=== PATIENT | female | born 1995 | race Caucasian/White ===

== ENCOUNTER → 2016-10-22 | Outpatient (CLI) | payer MEDICAID ==
--- NOTE | 2016-10-22 16:56 | RADIOLOGY REPORT (SQ) ---
EXAM DESCRIPTION: U/S OB TRANSVAGINAL W/O DOP COMPLETED DATE/TIME: 10/22/2016 4:33 pm REASON FOR STUDY: INCOMPLETE OR SPONTANEOUS WITH OTHER COMPLICATIONS O03.9 COMPLETE OR UNS P SPONTANEOUS WITHOUT COMPLICA COMPARISON: None. TECHNIQUE: Endovaginal static and realtime grayscale images acquired of the pelvis. Additional selec vicky spectral and color Doppler images recorded. All images stored on PACs. C LIMITATIONS: None. FINDINGS: Patient is post 09/23/2016 with persistent serum HCG level. UTERUS: 6.4 x 5 x 4 cm in size. No fibroids. There are findings worrisome for retained products of conception, with a heterogeneous endometrial st ripe with markedly increased color flow. Molar could not be excluded. This report was iliana led to Dinah Mckenzie NP 1640 hours 10/22/2016. CERVICAL LENGTH: 3.5 Cm Closed. RIGHT ADNEXA: Not visualized due to bowel gas LEFT ADNEXA: Not visualized due to bowel gas FREE FLUID: None. OTHER: No other significant finding. IMPRESSION: Heterogeneous endometrium with markedly increased color flow. In the setting of persist ent serum beta HCG post , findings are worrisome for retained products of conception or molar . TECHNICAL DOCUMENTATION: JOB ID: [id number] [employer]- All Rights Reserved
== END ==
LOC: RAD 15:51
PROVIDERS: ATTEND Nurse Practitioner
DX: O03.9 Complete or unspecified spontaneous abortion without complication (principal)
CPT/HCPCS: 76817

== ENCOUNTER 2016-11-09 07:46 | Day surgery (SDC) | payer MEDICAID ==
[2016-11-05 11:29] LABS: HEMATOCRIT 39.3 % (36.0-47.0); HEMOGLOBIN 13.2 g/dL (12.0-15.5); HGB HCT DIFFERENCE 0.3; MEAN CORPUSCULAR HEMOGLOBIN 30.6 pg (27.0-33.4); MEAN CORPUSCULAR HGB CONC 33.5 g/dL (32.0-36.0); MEAN CORPUSCULAR VOLUME 92 fl (80-97); RED BLOOD COUNT 4.29 10^6/uL (3.72-5.28); WHITE BLOOD COUNT 5.6 10^3/uL (4.0-10.5)
[2016-11-05 12:14] LABS: APPEARANCE,URINE SLIGHTLY HAZY; GLUCOSE, URINE NEGATIVE (NEGATIVE)
[2016-11-05 12:15] LABS: BACTERIA,URINE 3+ /HPF; BILIRUBIN,URINE NEGATIVE (NEGATIVE); KETONES,URINE NEGATIVE (NEGATIVE); LEUKOCYTE ESTERASE,URINE LARGE (NEGATIVE); NITRITE,URINE NEGATIVE (NEGATIVE); PROTEIN,URINE NEGATIVE (NEGATIVE); RBC,URINE 0-1 /HPF; URINE SPECIFIC GRAVITY 1.019; UROBILINOGEN,URINE NEGATIVE mg/dL (<2.0)
[~2016-11-09 07:46] MED LIST: LACTATED RINGERS 1000 ML IV PRN; LIDOCAINE 0.5% INJ-PF (5 MG/ML) 50 ML SDV SUBCUT PRN
[2016-11-09] MEDS ORDERED: PROPOFOL INJ 200 MG/20 ML VIAL IV ONE ×2 (09:39→09:42)
[2016-11-09] MEDS ORDERED: FENTANYL CITRATE INJ/PF 100 MCG/2 ML AMPUL ONE ×2 (09:39→09:41)
[2016-11-09] MEDS ORDERED: MIDAZOLAM 2 MG/2 ML INJ ONE ×2 (09:39→09:42)
[2016-11-09] MEDS ORDERED: LIDOCAINE 2% INJ-PF (20 MG/ML) 10 ML AMPUL ONE ×2 (09:41→13:54)
[2016-11-09] MEDS ORDERED: ONDANSETRON HCL INJ/PF 4 MG/2 ML SDV ONE (09:42)
[2016-11-09] MEDS ORDERED: IBUPROFEN INJ 800 MG/8 ML VIAL IV ONE (09:42)
[2016-11-09] MEDS ORDERED: DEXAMETHASONE SOD PHOSPHATE INJ 4 MG/1 ML VIAL ONE (09:42)
[2016-11-09] MEDS ORDERED: PROMETHAZINE HCL INJ 25 MG/1 ML VIAL IV PRN ×2 (10:12)
[2016-11-09] MEDS ORDERED: MEPERIDINE HCL/PF INJ 25 MG/1 ML DISP.SYRIN IV PRN (10:12)
[2016-11-09] MEDS ORDERED: OXYCODONE-ACETAMINOPHEN 5-325 MG TABLET PO PRN ×3 (10:12→11:06)
[2016-11-09] MEDS ORDERED: FENTANYL CITRATE INJ/PF 100 MCG/2 ML AMPUL IV PRN ×3 (10:12)
[2016-11-09] MEDS ORDERED: ONDANSETRON HCL INJ/PF 4 MG/2 ML SDV IV PRN (10:12)
[2016-11-09] MEDS ORDERED: DIPHENHYDRAMINE HCL 50 MG/ML VIAL IV PRN (10:12)
--- NOTE | 2016-11-09 10:24 | Operative Report ---
Operative Report DATE OF SURGERY: 11/09/16 PREOPERATIVE DIAGNOSIS: Retained products of conception POSTOPERATIVE DIAGNOSIS: Same OPERATION: Suction D&C SURGEON: JERROD CHAUDHARY ANESTHESIA: GA TISSUE REMOVED OR ALTERED: Uterine contents COMPLICATIONS: None ESTIMATED BLOOD LOSS: 50 cc INTRAOPERATIVE FINDINGS: Retained uterine contents PROCEDURE: Patient was taken back to the OR and placed in supine position. General anesthesia was induced. She was placed in the dorsolithotomy position using Bran stirrups. Her perineum and vagina were prepared and draped in sterile fashion. A weighted speculum was placed in the vagina and the anterior lip of the cervix was grasped with a tenaculum. The uterus was sounded to 7-8 cm before and after the case. The cervix was gently dilated and a size 8 curved suction curette was used to evacuate uterine contents. There was a small return of retained tissue. This was sent for specimen. At the end of the case the small cervical laceration from the tenaculum was closed with a 3-0 chromic suture. All instruments were removed and she was placed back in supine position. She was brought out of anesthesia and taken recovery room in stable condition.
[2016-11-09] MEDS ORDERED: KETOROLAC TROMETHAMINE INJ/PF 30 MG/1 ML SDV IV PRN (11:01)
[2016-11-09] MEDS ORDERED: IBUPROFEN 800 MG TABLET PO PRN (11:05)
[2016-11-09 12:20] VITALS: BP 114/75
[2016-11-09] MEDS ORDERED: SUCCINYLCHOLINE CHLORIDE INJ 200 MG/10 ML VIAL ONE (13:54)
[2016-11-09] MEDS ORDERED: METOCLOPRAMIDE HCL INJ/PF 10 MG/2 ML SDV ONE (13:54)
== END 2016-11-09 12:15 | disposition home or self-care (01) ==
LOC: OROUT 07:46
PROVIDERS: ATTEND Obstetrics & Gynecology
PROC: 10D17ZZ Extraction of Products of Conception, Retained, Via Natural or Artificial Opening (ICD-10-PCS; principal; 2016-11-09 10:00)
DX: O73.1 Retained portions of placenta and membranes, without hemorrhage (principal); R87.810 Cervical high risk human papillomavirus (HPV) DNA test positive
CPT/HCPCS: 36415; 85027; 81025; 81001; 88305 ×2; 59812; J2250; J1100; J3010; J2765; J0330; J2405; J2704; J3490; J1741; 1965

== ENCOUNTER 2017-02-18 07:52 | Day surgery (SDC) | payer MEDICAID ==
[2017-02-18] MEDS ORDERED: PROPOFOL INJ 200 MG/20 ML VIAL IV ONE (10:48)
--- NOTE | 2017-02-18 11:18 | Operative Report ---
Operative Report DATE OF SURGERY: 02/18/17 Operative Report: The risks, benefits and alternatives of the procedure including risks of bleeding, perforation requiring surgery are explained to the patient detail and informed consent is obtained. Patient was taken back to the operating room and placed in the left, lateral decubital position. Timeout was called. Propofol medications administered. A rectal examination was done which did not reveal any masses, tears or fissures. An Olympus videoscope was inserted into the patient's rectum. The scope was then carefully advanced all the way to the cecum. The cecum was identified by the usual anatomical landmarks including the ileocecal valve and the appendiceal office. The cecum is reached by 60 cm. Intubation of the terminal ileum is done. The scope was then sequentially pulled back via the various segments of the colon including the ascending colon , hepatic flexure, transverse colon, splenic flexure, descending colon finding to the rectosigmoid portions of the colon. Retroflexion maneuver is done. PREOPERATIVE DIAGNOSIS: Change of bowel habits POSTOPERATIVE DIAGNOSIS: Mild terminal ileitis status post biopsy rule out Crohn 's disease. Normal colonoscopy otherwise OPERATION: Colonoscopy with biopsy SURGEON: JP BOYLE ANESTHESIA: LMAC TISSUE REMOVED OR ALTERED: As noted above. COMPLICATIONS: None. ESTIMATED BLOOD LOSS: None. INTRAOPERATIVE FINDINGS: As described above. PROCEDURE: Patient tolerated procedure well. No immediate postprocedure complications are noted. Patient discharged in good condition. Discharge date 02/18/2017. Discharge diet: Regular. Discharge activity: Regular. 2-3 week follow-up to discuss findings. We will wait on biopsies. Patient is instructed to call the office or proceed to the emergency room should there be any further problems or questions.
[2017-02-18] MEDS ORDERED: 1/2 NORMAL SALINE 1,000 ML IV PRN (12:00)
[2017-02-18] MEDS ORDERED: DEXTROSE 5%-1/2 NORMAL SALINE 1,000 ML IV PRN (12:00)
[2017-02-18] MEDS ORDERED: LIDOCAINE 0.5% INJ-PF (5 MG/ML) 50 ML SDV SUBCUT PRN (12:00)
[2017-02-18 12:38] VITALS: BP 110/80
== END 2017-02-18 12:42 | disposition home or self-care (01) ==
LOC: OROUT 07:52
PROVIDERS: ATTEND Internal Medicine Gastroenterology
PROC: 0DBB8ZX Excision of Ileum, Via Natural or Artificial Opening Endoscopic, Diagnostic (ICD-10-PCS; principal; 2017-02-18 10:30)
DX: K52.9 Noninfective gastroenteritis and colitis, unspecified (principal); D50.9 Iron deficiency anemia, unspecified; Z79.899 Other long term (current) drug therapy
CPT/HCPCS: 45380; 81025; 88305 ×2; J2704; 810